=== PATIENT | female | born 1995 | race Caucasian/White ===

== ENCOUNTER → 2016-03-02 | Outpatient (CLI) | payer OTHER ==
--- NOTE | 2016-03-02 10:38 | REP ---
Clinical: Anatomical evaluation. Comparison: None . Findings: Examination demonstrates a single live intrauterine in breech presentation. motion is identified by technologist. Placenta is noted a anteriorly and grade zero without evidence for placenta previa or abruption. Amniotic fluid volume is normal. Cervix measures 4.4 cm in length and appears closed. No evidence for nuchal cord. Gestational age by LMP 21 weeks 5 days with EBONY 07/08/2016 . Gestational age by current measurements 22 weeks 0 days with EBONY 07/06/2016 . FHR equals 138 beats per minute. BPD 5.3 cm 22 weeks 1 day HC 19.6 21 weeks 6 days AC 17.7 22 weeks 4 days FL 3.5 21 weeks 0 days HL 3.6 22 weeks 3 days HC/AC ratio 1.11 Estimated weight 458 grams ( 51st percentile). Anatomical assessment demonstrates normal structures including cranium, choroid plexus, cavum, cerebellum/posterior fossa, facial features, lungs, four-chamber heart/ventricular outflow tracts, diaphragm, stomach, cord insertion/three-vessel cord, kidneys/bladder, spine, and extremities. Impression: Single live intrauterine in breech presentation demonstrating appropriate interval growth. Anatomical assessment is complete and normal. Signed by Anthony Villatoro MD 03/02/2016 10:29 A
== END ==
LOC: M RAD 09:32
PROVIDERS: ATTEND Family Medicine
DX: Z36 Encounter for antenatal screening of mother (principal); Z3A.22 22 weeks gestation of pregnancy

== ENCOUNTER 2016-03-03 18:50 | Outpatient (CLI) | payer OTHER ==
[~2016-03-03] VITALS: Ht 154.9 cm; Wt 58.0 kg
--- NOTE | 2016-03-03 20:45 | HPE ---
DATE OF ADMISSION: 03/03/2016 TRIAGE NOTE This lady is a 20-year-old 2, para 1 whose estimated date of confinement (EDC) is initially 07/07/2016. She has just transferred in from [place], has not had an visit at the clinic. Her first intake visit is on 03/10/2016. Her past history is that she had a spontaneous with Misoprostol at 8 weeks of gestation, and she had a significant ALLERGIC REACTION to the MISOPROSTOL. Her past medical history is unremarkable. Past surgical history is unremarkable. She comes today because she initially thought she had wiped and had some blood, but, in fact, she had just some itching of the vulvovaginal area. She had a recent ultrasound for anatomy and it showed an intrauterine and breech presentation. Cervix was 4.4, estimated gestational age was 22 weeks 0 days with an EDC of 07/06/2016. The heart was 138 beats per minute and it was the 50th percentile. The anatomy assessment was complete and normal. On examination here, she does not appear to be in any distress. Symphysis fundus height is appropriate at 22 cm. heart is present on the monitor. Her blood pressure is 120 to 159, pulse is 76, respirations are 18, temperature is 98.1. Urine is 1.015, pH is 6, negative, negative with a trace of protein. On examination, the vulva appears to be a bit swollen, the vagina is adequate. There is just some white discharge. No demonstration of odor. Negative for BV or yeast, and there is no evidence of vaginal loss or bleeding. The patient was discharged with counseling regarding pelvic rest and to maintain her appointment on 03/10/2016. In summary, we have an early 22-week gestation who has had no care since December, is following up at the clinic on 03/10/2016.
== END 2016-03-03 20:15 | disposition home or self-care (01) ==
LOC: M LDO 18:50
PROVIDERS: ATTEND Obstetrics & Gynecology
DX: O26.852 Spotting complicating pregnancy, second trimester (principal); Z3A.22 22 weeks gestation of pregnancy

== ENCOUNTER 2016-03-24 20:32 | Emergency (ER) | payer OTHER ==
[2016-03-24] MEDS ORDERED: SILVER SULFADIAZINE 1% CR 50 GM JAR As Ordered ONE (21:17)
[2016-03-24] MEDS ORDERED: NORCO 5/325MG TABLET (BULK) As Ordered ONE (21:17)
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
== END 2016-03-24 21:43 | disposition home or self-care (01) ==
LOC: M ED 20:32
DX: O99.89 Other specified diseases and conditions complicating pregnancy, childbirth and the puerperium (principal); T25.029A Burn of unspecified degree of unspecified foot, initial encounter; T25.0 Burn of unspecified degree of ankle and foot; T31.0 Burns involving less than 10% of body surface; X10.2XXA Contact with fats and cooking oils, initial encounter; Y92.019 Unspecified place in single-family (private) house as the place of occurrence of the external cause; Y93.G9 Activity, other involving cooking and grilling; Y99.9 Unspecified external cause status; Z3A.26 26 weeks gestation of pregnancy; Z79.899 Other long term (current) drug therapy; Z88.8 Allergy status to other drugs, medicaments and biological substances

== ENCOUNTER 2016-05-20 20:12 | Outpatient (CLI) | payer OTHER ==
[~2016-05-20] VITALS: Ht 154.9 cm; Wt 65.0 kg
[2016-05-20 20:22] VITALS: BP 124/73
--- NOTE | 2016-05-21 01:29 | IPNPDOC ---
Text Note Date of Service The patient was seen on 05/21/16. NOTE Subjective: Amy is a 20yo with a doss IUP at 33w0d who presents to triage c/ o decreased movement. Pt states she has not felt movement all day. Did kick counts and got no movements. ROS: Admits: adequate hydration Denies: fever, chills, vaginal bleeding/Loss of fluid, urinary symptoms, CTXs, recent illness Objective: Vitals wnl, afebrile NST: Reactive with moderate variability, +accels, -decels. [place]: one CTX, no uterine irritability Physical Exam: General: WDWN gravid female in NAD Mental: A&Ox3 Abdomen: Gravid abdomen without tenderness in any quadrant. TAUS: doss IUP, positive FCA and FM, placenta anterior, cephalic presentation, IZABELA 16cm. Assessment: Amy is a 20yo with a doss IUP at 33w0d US with active movement on US. IZABELA 16cm. Reactive NST. Plan: -f/u as scheduled in OB clinic -kick counts prn -Nurse further educated pt on how to perform kick counts. -encouraged adequate hydration -Discussed term labor and decreased movement precautions -return to L&D triage for any concerns -Medical reconciliation reviewed Dr. Liyah Mejia MD Staff Physician, OBGYSaida RAMIREZ I+O Saida CELAYA I+O Vital Signs Date Time Temp Pulse Resp B/P Pulse Ox O2 Delivery O2 Flow Rate FiO2 05/20/16 20:22 98.0 103 124/73 LIYAH MEJIA MD May 21, 2016 01:29
== END 2016-05-20 21:05 | disposition home or self-care (01) ==
LOC: M LDO 20:12
PROVIDERS: ATTEND Obstetrics & Gynecology
DX: O36.8131 Decreased fetal movements, third trimester, fetus 1 (principal); Z3A.33 33 weeks gestation of pregnancy

== ENCOUNTER 2016-06-22 23:39 | Outpatient (CLI) | payer OTHER ==
[~2016-06-22] VITALS: Ht 152.4 cm; Wt 73.0 kg
[2016-06-22 23:51] VITALS: BP 130/81
[2016-06-23 00:21] VITALS: BP 130/79
[2016-06-23] MEDS ORDERED: PRENTAB9 PO (00:38)
== END 2016-06-23 00:32 | disposition home or self-care (01) ==
LOC: M LDO 23:39
PROVIDERS: ATTEND Obstetrics & Gynecology
DX: O47.1 False labor at or after 37 completed weeks of gestation (principal); Z3A.37 37 weeks gestation of pregnancy

== ENCOUNTER 2016-07-01 18:50 | Outpatient (CLI) | payer OTHER ==
[2016-07-01] VITALS (8 sets, daily range): BP systolic 131–158; BP diastolic 67–118
[~2016-07-01] VITALS: Ht 154.9 cm; Wt 73.0 kg
[~2016-07-01 18:50] MED LIST: PRENTAB9 PO
[2016-07-01] MEDS ORDERED: BUTORPHANOL 2 MG/ML INJ (J0595) IM ONE (20:00)
[2016-07-01] MEDS ORDERED: PROMETHAZINE INJ 25 MG/ML VIAL (J2550) IM ONE (20:15)
[2016-07-01 20:32] LABS: MEAN CORPUSCULAR HEMOGLOBIN 29.4 pg (27.0-33.0); MEAN CORPUSCULAR HGB CONC 34.1 g/dl (32.0-36.5); MEAN CORPUSCULAR VOLUME 86.3 fl (80.0-96.0); WHITE BLOOD COUNT 11.8 K/mm3 (4.0-10.0)
[2016-07-01 20:55] LABS: ALT/SGPT 24 U/L (12-78); AST/SGOT 17 U/L (15-37); BILIRUBIN,TOTAL 0.3 MG/DL (0.2-1.0); CREATININE FOR GFR 0.57 MG/DL (0.55-1.02); URIC ACID 3.1 MG/DL (2.6-6.0)
--- NOTE | 2016-07-03 00:37 | HPE ---
DATE OF ADMISSION: 07/01/2016 This lady is a 20-year-old 2, para 1, last menstrual period (LMP) 09/22/2015, estimated date of confinement (EDC) 07/08/2016, at 39 weeks of gestation. She was seen at the clinic earlier today with a headache. She was given Fioricet. She said she took one or two Fioricet. She laid down, slept for 4 hours and got up and still had her headache, so she came in for evaluation. She had nothing to eat or drink since lunchtime and it is now past 1700 hours. Her headache she describes as 8/10, although she is texting on her phone and does not seem to be bothered by any issues. She has no light issues. No flashes. She does have some blurring in her right eye, but she says this is related to her contact and she has had that before. She has no right upper quadrant pain. No flashes. No irritability. No abdominal discomfort. Her risk factors is she is involved in behavioral health. She has anemia and she has proteinuria at 38 weeks. Her labs are A negative, HIV negative, hepatitis negative, RPR negative, rubella nonimmune. Varicella immune. Urine was negative, GC/chlamydia were negative. 1-hour glucose 121. Group B Streptococcus (GBS) is negative. She had only one elevated range blood pressure. The others were all midrange. Blood pressures 131/82, respirations 18, pulse 95, temperature 98.2. Urine was 1.010, pH 7 and negative. Her hemoglobin 9.9, 29.2 hematocrit, 440 platelets indicating anemia. Her liver enzymes were normal. Uric acid was normal. Protein creatinine ratio was 0.57 and we have instituted a 24-hour urine protein. She did one previously about 4 days ago, unable to find the result at the present time. Therefore, we have repeated the 24-hour urine with instructions. She does not appear in any distress. Despite the fact that she said she has a headache, she seems to be functioning well. She has a category 1 strip. She is normocephalic, atraumatic. Neck full range of motion. Pupils equal and reactive to light. Distal pulses are symmetric. No evidence of deep venous thrombosis (DVT), pulmonary embolism (PE) or superficial phlebitis. No edema. She does have 2+ reflexes on both sides, but no clonus. She has no vaginal discharge or bleeding. She has no chest issues. She has no wheezes or rhonchi. Bases are clear. No costovertebral angle (CVA) tenderness. Uterus is nontender. Appropriate symphysis fundus height. Four quadrant bowel sounds are noted. She has no rashes, lesions or pruritus. No arthralgia, myalgia. No complaint of cough, wheeze, shortness breath or dyspnea on exertion. No chest pain. Not bleeding. Neurologically complete. No incontinence, urgency or frequency. No nausea, vomiting, diarrhea, constipation. No diabetic issues. 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 Past medical history and surgical history are unremarkable. FAMILY HISTORY: Noncontributory. She does not smoke or drink or abuse drugs and there is no domestic violence. Our plan of management with her is to give her some pain medications. We gave her some Stadol and Phenergan. We are getting a corrected 24-hour urine. We did of preeclamptic profile which was negative. We gave her precautions regarding preeclampsia and headache. On discharge, the headache had resolved. She has her jug for 24-hour return with an order for same and has a followup appointment for monitoring in the office next week. In summary, we have a 39+ weeks of gestation with a difficult migraine which was controlled by intramuscular (IM) medications and preeclamptic profile which was negative and she has occasional midrange blood pressures.
== END 2016-07-02 00:40 | disposition home or self-care (01) ==
LOC: M LDO 18:50
PROVIDERS: ATTEND Obstetrics & Gynecology
DX: O99.353 Diseases of the nervous system complicating pregnancy, third trimester (principal); O99.013 Anemia complicating pregnancy, third trimester; O12.13 Gestational proteinuria, third trimester; O99.343 Other mental disorders complicating pregnancy, third trimester; Z3A.39 39 weeks gestation of pregnancy
CPT/HCPCS: 36415; 59025; 82247; 82565; 82570; 83615; 84156; 84450; 84460; 84550; 85027; 96372; J0595

== ENCOUNTER 2016-08-12 16:56 | Inpatient (IN) | payer OTHER ==
[~2016-08-12] VITALS: Ht 154.9 cm; Wt 60.1 kg
[2016-08-12 18:29] LABS: MEAN CORPUSCULAR HEMOGLOBIN 27.5 pg (27.0-33.0); MEAN CORPUSCULAR HGB CONC 33.3 g/dl (32.0-36.5); MEAN CORPUSCULAR VOLUME 82.5 fl (80.0-96.0); RED CELL DISTRIBUTION WIDTH 14.3 % (11.5-14.5); WHITE BLOOD COUNT 6.8 K/mm3 (4.0-10.0)
[2016-08-12 18:35] LABS: CONTROL LINE HCG INT CTR LINE PRESENT
[2016-08-12 18:42] LABS: METHADONE URINE NEGATIVE (NEGATIVE)
[2016-08-12] MEDS ORDERED: ACETAMINOPHEN TAB 650MG DOSE (2X325MG) PO PRN (18:45)
[2016-08-12] MEDS ORDERED: MOM 30ML SUSPENSION UDC PO PRN (18:45)
[2016-08-12] MEDS ORDERED: MAALOX 30 ML SUSP *UDC PO PRN (18:45)
[2016-08-12 18:52] LABS: ALBUMIN 4.1 GM/DL (3.2-5.2); ALBUMIN/GLOBULIN RATIO 1.05 (1.00-1.93); ALKALINE PHOSPHATASE 92 U/L (45-117); ALT/SGPT 23 U/L (12-78); ANION GAP 8 MEQ/L (8-16); AST/SGOT 13 U/L (15-37); BILIRUBIN,DIRECT < 0.1 MG/DL (0.0-0.2); BILIRUBIN,TOTAL 0.3 MG/DL (0.2-1.0); BLOOD UREA NITROGEN 10 MG/DL (7-18); CALCIUM LEVEL 9.2 MG/DL (8.5-10.1); CARBON DIOXIDE LEVEL 27 MEQ/L (21-32); CHLORIDE LEVEL 107 MEQ/L (98-107); CREATININE FOR GFR 0.87 MG/DL (0.55-1.02); GLUCOSE, FASTING 88 MG/DL (70-105); SODIUM LEVEL 142 MEQ/L (136-145)
[2016-08-12] MEDS ORDERED: LAMO25TA2 PO (18:57)
[2016-08-12 23:01] VITALS: BP 127/83
[2016-08-13] MEDS ORDERED: traZODone 50 MG TAB PO PRN (01:30)
[2016-08-13 06:00] VITALS: BP 132/65
[2016-08-13] MEDS ORDERED: ESCITALOPRAM OXALATE 10 MG TAB (LEXAPRO) PO SCH (09:00)
[2016-08-13 18:00] VITALS: BP 147/69
[2016-08-13] MEDS: QUEtiapine FUMARATE 50 MG TAB PO SCH (22:30)
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
--- NOTE | 2016-08-14 03:48 | HPE ---
DATE OF ADMISSION: 08/12/2016 HISTORY OF PRESENT ILLNESS: Please refer to psychiatric history and evaluation for further details on this admission. This examination and history is intended for medical issues, which may need treatment, followup or consult on this 20-year-old female. PRIMARY CARE PROVIDER: Swati. ALLERGIES: MISOPROSTOL and almonds. SOCIAL HISTORY: She is . Her is a soldier currently stationed at [employer]. She has a 6-week-old girl. Ethyl alcohol (EtOH) none. Smokes none. Recreational drug use none. PAST MEDICAL HISTORY: Negative. PAST SURGICAL HISTORY: Dilation and curettage (D and C) in 2014. HOME MEDICATIONS: - Lamictal 25 mg by mouth daily - vitamin one by mouth daily LABORATORY STUDIES: CBC was normal. Electrolytes were normal. BUN was 10, creatinine was 0.87. Toxicology screen was negative. REVIEW OF SYSTEMS: 10-system review was done and unremarkable other than she had some slight nausea for 3 days. No vomiting. No hematochezia, melena or rectal bleeding. OBJECTIVE: Vital signs stable. Height 61 inches, weight 60.4 kg, body mass index (BMI) 25.2. Blood pressure 124/85, pulse 72, respirations 18, temperature 97.8. Patient is alert and oriented times three. Pupils equal and react to light. Extraocular muscles intact. Cornea and sclerae clear. Conjunctivae were normal. No facial asymmetry. Pharynx, tongue and gums pink and moist. Tongue is midline. Neck is supple without lymphadenopathy. No thyromegaly, no goiter. Carotids 2+ without bruit. Chest clear to auscultation without wheeze or retraction. Heart is regular. Abdomen is benign. Bowel sounds positive. Genitourinary/rectal: Not done. Extremities show equal strength, full range of motion. No cyanosis, clubbing or edema. Peripheral pulses equal and palpable bilaterally. Skin is warm and dry. IMPRESSION/PLAN: 1. Psychiatric plan per psychiatry. 2. Mild nausea. Will order Zofran 4 mg sublingually every 6 hours as needed. Encourage clear liquids by mouth. Notify staff if does not clear or improve.
[2016-08-14 06:00] VITALS: BP 114/63
[2016-08-14] MEDS: buPROPion 75 MG TAB PO SCH (09:05)
[2016-08-14 18:00] VITALS: BP 128/85
[2016-08-14] MEDS: ONDANSETRON 4 MG ORAL DISINTEGRATING TAB (S0181) SL PRN (23:02)
[2016-08-14] MEDS: QUEtiapine FUMARATE 50 MG TAB PO SCH (23:02)
[2016-08-15 06:33] VITALS: BP 114/66
[2016-08-15] MEDS: buPROPion 75 MG TAB PO SCH (08:25)
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
--- NOTE | 2016-08-15 12:11 | IPN ---
DATE OF SERVICE: 08/14/2016 I evaluated a 20-year-old female who was admitted after she reported feeling increasingly depressed approximately 1 month after her baby girl was born. She has reported feeling overwhelmed due to the fact that the baby has been diagnosed with an enlarged heart and she fears the baby might . She denied suicidal ideation, but she states that she feels helpless and hopeless. Patient has a history of bipolar depression, attention deficit disorder (ADD) and generalized anxiety disorder. This morning, the patient reported that was feeling nauseous most likely because she started taking her medications again and she reported feeling nauseous after she took her Abilify last night. She reported she felt better this morning, happier because she was going to see her baby during visitation hours on Monday. She denies suicidal and homicidal ideation, denied auditory and visual hallucinations, denied delusional thoughts. Patient is responding well to treatment, needs to adjust again to medication. At the present time, she is not a danger to self or others. Will followup.
[2016-08-15 18:34] VITALS: BP 105/62
[2016-08-15] MEDS: ONDANSETRON 4 MG ORAL DISINTEGRATING TAB (S0181) SL PRN (21:31)
[2016-08-15] MEDS: QUEtiapine FUMARATE 50 MG TAB PO SCH (22:59)
[2016-08-16 06:27] VITALS: BP 106/55
[2016-08-16] MEDS: buPROPion 75 MG TAB PO SCH (08:20)
[2016-08-16] MEDS ORDERED: QUEtiapine FUMARATE 50 MG TAB PO PRN (15:30)
[2016-08-16 18:22] VITALS: BP 128/79
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
[2016-08-17 06:30] VITALS: BP 113/59
--- NOTE | 2016-08-17 07:25 | ECGEPIP ---
Stationary ECG Study [facility] Test Date: 2016-08-15 Pat Name: LEXIS HAWK Department: Room: [place] [address] Gender: F Manager Dental: LOLA : 1995 Requested By: Lianna Gar Order Number: [id number] Reading MD: Marita Carreno Measurements Intervals [place] Rate: 52 P: 54 TX: 135 QRS: 47 QRSD: 88 T: 30 QT: 411 QTc: 386 Interpretive Statements SINUS BRADYCARDIA WITH SINUS ARRHYTHMIA NO PRIOR Electronically Signed On 08-17-2016 7:25:21 EDT by Marita Crareno
[2016-08-17] MEDS: buPROPion 75 MG TAB PO SCH (08:10)
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
[2016-08-17] MEDS ORDERED: ARIP5TA PO (14:20)
[2016-08-17] MEDS ORDERED: QUET5TAB PO (14:20)
[2016-08-17] MEDS ORDERED: BUPR75TA5 PO (14:20)
== END 2016-08-17 14:30 | disposition home or self-care (01) | DRG 755 ==
LOC: M ED 19:19 → M ED INP 19:20 → M PSY 22:57
PROVIDERS: ADMIT Psychiatry & Neurology Psychiatry; ATTEND Psychiatry & Neurology Psychiatry
DX: F43.23 Adjustment disorder with mixed anxiety and depressed mood (principal); F31.9 Bipolar disorder, unspecified; F41.1 Generalized anxiety disorder; F60.9 Personality disorder, unspecified; Z88.8 Allergy status to other drugs, medicaments and biological substances; Z91.018 Allergy to other foods; R11.0 Nausea; Z79.899 Other long term (current) drug therapy

== ENCOUNTER → 2017-03-24 | Outpatient (REF) | payer OTHER | LOC: M SFHCLERA 16:38 | DX: N30.01 Acute cystitis with hematuria (principal) | CPT/HCPCS: 87186 ==

== ENCOUNTER → 2017-10-04 | Outpatient (REF) | payer OTHER | LOC: M SFHCLERA 13:53 | DX: R82.90 Unspecified abnormal findings in urine (principal) ==